=== PATIENT | female | born 1945 | race Caucasian/White ===

== ENCOUNTER 2017-01-15 11:55 | Inpatient (IN) | payer MEDICARE ==
--- NOTE | 2017-01-15 12:29 | ED ---
General Adult HPI - General Chief complaint: Recheck/Abnormal Lab/Rx Stated complaint: HTN Time Seen by Provider: 01/15/17 12:05 Source: patient, RN notes reviewed Mode of arrival: ambulatory Limitations: no limitations - History of Present Illness Initial comments: This is a 71-year-old female who presents to the emergency department complaining of high blood pressure lately. Patient states she just started on Lotensin recently however on Wednesday she had a significant headache all night long and noticed that her vision was blurred. Patient states she took her blood pressure and she believes it was 220 systolic. Patient states there is a she felt fine all day and then today she started having symptoms of weakness to the left medial fingers 34 and 5 and some tingling to her face and a weird sensation from those fingers up into her forearm. Patient states he came once last about 10 minutes when away and came again last about 10 minutes and went away. During that time she took her blood pressure it was right around 200 systolic. Patient denies any symptoms currently. Patient denies headache. Patient denies any lightheadedness dizziness or near syncopal episode. Patient denies any fever chills or cough per patient denies any chest pain difficult breathing shortness of breath or palpitations. Patient denies any abdominal pain patient denies nausea vomiting diarrhea. - Related Data Home Medications Medication Instructions Recorded Confirmed Ascorbic Acid [Vitamin C] 500 mg PO DAILY 01/15/17 01/15/17 Aspirin EC [Ecotrin Low Dose] 81 mg PO SUTUTHSA 01/15/17 01/15/17 Cholecalciferol [Vitamin D3] 1,000 unit PO DAILY 01/15/17 01/15/17 Fish Oil/Dha/Epa [Fish Oil 1,200 1 cap PO W/SUPPER 01/15/17 01/15/17 mg Fish Oil] Levothyroxine Sodium [Synthroid] 50 mcg PO HS 01/15/17 01/15/17 Losartan Potassium [Cozaar] 50 mg PO DAILY 01/15/17 01/15/17 Multivitamins, Thera [Multivitamin 1 tab PO DAILY 01/15/17 01/15/17 (formulary)] Pravastatin Sodium [Pravachol] 40 mg PO HS 01/15/17 01/15/17 Sertraline HCl [Zoloft] 100 mg PO DAILY 01/15/17 01/15/17 Allergies Allergy/AdvReac Type Severity Reaction Status Date / Time Penicillins Allergy Rash/Hives Verified 01/15/17 13:31 Sulfa (Sulfonamide Allergy Rash/Hives Verified 01/15/17 13:31 Antibiotics) NSAIDS (Non-Steroidal AdvReac Nausea & Verified 01/15/17 13:31 Anti-Inflamma Vomiting Review of Systems ROS Statement: Those systems with pertinent positive or pertinent negative responses have been documented in the HPI. ROS Other: All systems not noted in ROS Statement are negative. Past Medical History Past Medical History: Hyperlipidemia, Hypertension, Thyroid Disorder History of Any Multi-Drug Resistant Organisms: None Reported Past Surgical History: Hysterectomy Additional Past Surgical History / Comment(s): repair of aorta after laproscopic surg Past Psychological History: Depression Smoking Status: Never smoker Past Alcohol Use History: Rare Past Drug Use History: None Reported General Exam - General Exam Comments Initial Comments: GENERAL: Patient is well-developed and well-nourished. Patient is nontoxic and well- hydrated and is in no acute distress. ENT: Neck is soft and supple. No significant lymphadenopathy is noted. Oropharynx is clear. Moist mucous membranes. Neck has full range of motion without eliciting any pain. EYES: The sclera were anicteric and conjunctiva were pink and moist. Extraocular movements were intact and pupils were equal round and reactive to light. Eyelids were unremarkable. PULMONARY: Unlabored respirations. Good breath sounds bilaterally. No audible rales rhonchi or wheezing was noted. CARDIOVASCULAR: There is a regular rate and rhythm without any murmurs gallops or rubs. ABDOMEN: Soft and nontender with normal bowel sounds. No palpable organomegaly was noted. There is no palpable pulsatile mass. SKIN: Skin is clear with no lesions or rashes and otherwise unremarkable. NEUROLOGIC: Patient is alert and oriented x3. Cranial nerves II through XII are grossly intact. Motor and sensory are also intact. Normal speech, volume and content. Symmetrical smile. MUSCULOSKELETAL: Normal extremities with adequate strength and full range of motion. No lower extremity swelling or edema. No calf tenderness. LYMPHATICS: No significant lymphadenopathy is noted PSYCHIATRIC: Normal psychiatric evaluation. Limitations: no limitations Course Vital Signs 01/15/17 01/15/17 01/15/17 12:06 12:51 12:55 Temperature 97 F L Pulse Rate 95 88 92 Respiratory 18 Rate Blood Pressure 158/96 218/90 197/88 O2 Sat by Pulse 98 100 100 Oximetry 01/15/17 01/15/17 13:07 13:46 Temperature Pulse Rate 92 90 Respiratory 18 18 Rate Blood Pressure 184/81 169/83 O2 Sat by Pulse 100 100 Oximetry Medical Decision Making - Medical Decision Making EKG shows normal sinus rhythm at 80 bpm FL interval is 132 QRS is 74 QT interval 38 QTC is 469 per patient's EKG shows no ST segment elevation or depression or T-wave abdomen is noted CT of the head shows no acute normalities. Chest x-ray shows no trouble normalities. Patient had some stuttering symptoms all emergency department whereby her fingers became a little weak again but then went away this happened a couple times in the emergency department. I spoke with Dr. Garnica he agreed to admit the patient I wrote admitting orders I consult neurology. - Lab Data Result diagrams: 01/15/17 12:27 01/15/17 12:27 Lab Results 01/15/17 01/15/17 01/15/17 Range/Units 12:27 12:27 12:27 WBC 6.6 (3.8-10.6) k/uL RBC 4.37 (3.80-5.40) m/uL Hgb 13.2 (11.4-16.0) gm/dL Hct 40.4 (34.0-46.0) % MCV 92.5 (80.0-100.0) fL MCH 30.2 (25.0-35.0) pg MCHC 32.7 (31.0-37.0) g/dL RDW 13.6 (11.5-15.5) % Plt Count 238 (150-450) k/uL Neutrophils % 70 % Lymphocytes % 20 % Monocytes % 5 % Eosinophils % 2 % Basophils % 1 % Neutrophils # 4.6 (1.3-7.7) k/uL Lymphocytes # 1.3 (1.0-4.8) k/uL Monocytes # 0.3 (0-1.0) k/uL Eosinophils # 0.1 (0-0.7) k/uL Basophils # 0.1 (0-0.2) k/uL PT (9.0-12.0) sec INR (<1.1) APTT (22.0-30.0) sec Sodium 140 (137-145) mmol/L Potassium 4.2 (3.5-5.1) mmol/L Chloride 105 (98-107) mmol/L Carbon Dioxide 27 (22-30) mmol/L Anion Gap 8 mmol/L BUN 15 (7-17) mg/dL Creatinine 0.59 (0.52-1.04) mg/dL Est GFR (MDRD) Af Amer >60 (>60 ml/min/1.73 sqM) Est GFR (MDRD) Non-Af >60 (>60 ml/min/1.73 sqM) Glucose 107 H (74-99) mg/dL Calcium 9.6 (8.4-10.2) mg/dL Total Bilirubin 0.5 (0.2-1.3) mg/dL AST 34 (14-36) U/L ALT 27 (9-52) U/L Alkaline Phosphatase 74 (38-126) U/L Total Creatine Kinase 582 H (30-135) U/L CK-MB (CK-2) 1.8 (0.0-2.4) ng/mL CK-MB (CK-2) Rel Index 0.3 Troponin I <0.012 (0.000-0.034) ng/mL Total Protein 7.3 (6.3-8.2) g/dL Albumin 3.9 (3.5-5.0) g/dL /01/27 Range/Units 12:27 WBC (3.8-10.6) k/uL RBC (3.80-5.40) m/uL Hgb (11.4-16.0) gm/dL Hct (34.0-46.0) % MCV (80.0-100.0) fL MCH (25.0-35.0) pg MCHC (31.0-37.0) g/dL RDW (11.5-15.5) % Plt Count (150-450) k/uL Neutrophils % % Lymphocytes % % Monocytes % % Eosinophils % % Basophils % % Neutrophils # (1.3-7.7) k/uL Lymphocytes # (1.0-4.8) k/uL Monocytes # (0-1.0) k/uL Eosinophils # (0-0.7) k/uL Basophils # (0-0.2) k/uL PT 11.0 (9.0-12.0) sec INR 1.1 (<1.1) APTT 26.0 (22.0-30.0) sec Sodium (137-145) mmol/L Potassium (3.5-5.1) mmol/L Chloride (98-107) mmol/L Carbon Dioxide (22-30) mmol/L Anion Gap mmol/L BUN (7-17) mg/dL Creatinine (0.52-1.04) mg/dL Est GFR (MDRD) Af Amer (>60 ml/min/1.73 sqM) Est GFR (MDRD) Non-Af (>60 ml/min/1.73 sqM) Glucose (74-99) mg/dL Calcium (8.4-10.2) mg/dL Total Bilirubin (0.2-1.3) mg/dL AST (14-36) U/L ALT (9-52) U/L Alkaline Phosphatase (38-126) U/L Total Creatine Kinase (30-135) U/L CK-MB (CK-2) (0.0-2.4) ng/mL CK-MB (CK-2) Rel Index Troponin I (0.000-0.034) ng/mL Total Protein (6.3-8.2) g/dL Albumin (3.5-5.0) g/dL Disposition Clinical Impression: TIA (transient ischemic attack) Disposition: ADMITTED IP TO THIS [facility] Time of Disposition: 14:04
[2017-01-15 12:38] LABS: Basophils # (A) 0.1 k/uL (0-0.2); Basophils % (A) 1 %; CH 30.2; CHCM 32.8; Eosinophils # (A) 0.1 k/uL (0-0.7); Eosinophils % (A) 2 %; HCT 40.4 % (34.0-46.0); HDW 2.33; HGB 13.2 gm/dL (11.4-16.0); Luc # (Auto) 0.13; Luc % (Auto) 2; Lymphocytes # (A) 1.3 k/uL (1.0-4.8); Lymphocytes % (A) 20 %; MCH 30.2 pg (25.0-35.0); MCHC 32.7 g/dL (31.0-37.0); MCV 92.5 fL (80.0-100.0); Mean Platelet Volume 7.2; Monocytes # (A) 0.3 k/uL (0-1.0); Monocytes % (A) 5 %; Neutrophils # (A) 4.6 k/uL (1.3-7.7); Neutrophils % (A) 70 %; RBC 4.37 m/uL (3.80-5.40); RDW 13.6 % (11.5-15.5); WBC 6.6 k/uL (3.8-10.6); WBC (Perox) 6.99
[2017-01-15 12:49] LABS: ALT 27 U/L (9-52); AST 34 U/L (14-36); Alkaline Phosphatase 74 U/L (38-126); Anion Gap 8 mmol/L; Blood Urea Nitrogen 15 mg/dL (7-17); Calcium 9.6 mg/dL (8.4-10.2); Carbon Dioxide 27 mmol/L (22-30); Chloride 105 mmol/L (98-107); Glucose 107 mg/dL (74-99); Non-African American GFR(MDRD) >60 (>60 ml/min/1.73 sqM); Potassium 4.2 mmol/L (3.5-5.1); Sodium 140 mmol/L (137-145); Total Bilirubin 0.5 mg/dL (0.2-1.3); Total Protein 7.3 g/dL (6.3-8.2)
--- NOTE | 2017-01-15 12:52 | CT ---
EXAMINATION TYPE: CT brain wo con DATE OF EXAM: 01/15/2017 12:47 PM COMPARISON: NONE HISTORY: left arm numbness, htn CT DLP: 1085 mGycm. Automated Exposure Control for Dose Reduction was Utilized. TECHNIQUE: CT scan of the head is performed without contrast. FINDINGS: There is no acute intracranial hemorrhage, mass effect, or midline shift identified. The ventricles and sulci are within normal limits in size. The globes are intact and the visualized sin uses are clear. IMPRESSION: No acute intracranial hemorrhage, mass effect, or midline shift is seen.
[2017-01-15 13:04] LABS: INR 1.1 (<1.1)
--- NOTE | 2017-01-15 13:04 | XR ---
EXAMINATION TYPE: XR chest 2V DATE OF EXAM: 01/15/2017 12:54 PM COMPARISON: NONE HISTORY: Hypertension. Chest pain. TECHNIQUE: Frontal and lateral views of the chest are obtained. FINDINGS: There is no focal air space opacity, pleural effusion, or pneumothorax seen. The cardiac silhouette size is within normal limits. The osseous structures are intact. Hilar vasculature is un remarkable. No radiographic evidence of pulmonary arterial hypertension. IMPRESSION: No acute cardiopulmonary process.
[2017-01-15 13:05] LABS: Creatine Kinase 582 U/L (30-135)
[2017-01-15 13:18] LABS: Creatine Kinase MB 1.8 ng/mL (0.0-2.4); Troponin I <0.012 ng/mL (0.000-0.034)
--- NOTE | 2017-01-15 14:51 | US ---
EXAMINATION TYPE: US carotid duplex BILAT DATE OF EXAM: 01/15/2017 2:43 PM COMPARISON: NONE CLINICAL HISTORY: Stenosis. HTN, numbness left hand, lower arm, and face, headache EXAM MEASUREMENTS: RIGHT: Peak Systolic Velocity (PSV) cm/sec ----- Right CCA: 65.8 ----- Right ICA: 129.1 ----- Right ECA: 86.6 ICA/CCA ratio: 2.0 RIGHT: End Diastole cm/sec ----- Right CCA: 15.3 ----- Right ICA: 33.8 ----- Right ECA: 5.0 LEFT: Peak Systolic Velocity (PSV) cm/sec ----- Left CCA: 68.5 ----- Left ICA: 129.9 ----- Left ECA: 74.9 ICA/CCA ratio: 1.9 LEFT: End Diastole cm/sec ----- Left CCA: 18.0 ----- Left ICA: 43.2 ----- Left ECA: 19.3 VERTEBRALS (direction of flow): Right Vertebral: Antegrade Left Vertebral: Antegrade Mild plaque bilateral bifurcations. No evidence of significant stenosis. 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 Criteria for Assigning % of Stenosis / Diameter reduction (Estimation based on the indirect measurements of the internal carotid artery velocities (ICA PSV). 1. Normal (no stenosis)=ICA PSV < 125 cm/s: ratio < 2.0: ICA EDV<40 cm/s. 2. Less than 50% stenosis=ICA PSV < 125 cm/s: ratio < 2.0: ICA EDV<40 cm/s. 3. 50 to 69% stenosis=ICA PSV of 125 to 230 cm/s: ration 2.0 ? 4.0: ICA EDV 40-100 cm/s. 4. Greater than 70% stenosis to near occlusion= ICA PSV > 230 cm/s: ratio > 4.0: ICA EDV > 100 cm/s. 5. Near occlusion= ICA PSV velocities may be low or undetectable: variable ratio and ICA EDV. 6. Total occlusion=unable to detect flow.
--- NOTE | 2017-01-15 16:32 | P.HPIM ---
History of Present Illness H&P Date: 01/15/17 Chief Complaint: tingling 71-year-old female with the recent diagnosis of hypertension was started on the medication within the last 5 days comes in the hospital with an episode of fall left arm tingling. 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 Patient was seen by Dr. Lundberg on Wednesday and was started on losartan. Patient states that her blood pressure over the recent times were range from 140-160 systolic. However over the last 2 blood pressure checks patient's systolic has been greater than 210. Patient has doubled up on her medication over the last 2 days to take 25 mg losartan 2 tabs daily. This a.m. her blood pressure apparently was 150 systolic when her symptoms started. Patient also states that she noticed tingling at the angle of her mouth. All her symptoms lasted less than half hour denies having any motor weakness that was appreciated no dysarthria Denies having any previous history of TIAs or strokes. Review of Systems All systems: negative (Noted in HPI) Past Medical History Past Medical History: Hyperlipidemia, Hypertension, Thyroid Disorder Additional Past Medical History / Comment(s): GERD-TAKE OTC TUMS NEEDED, STRESS INCONT OF URINE, DPERESSION. 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 THEY ARE SNOW BIRDS FROM [place] TO [place].6 MONTHS EACH STATE. HERE THEY LIVE IN A SINGLE LEVEL HOME THAT HAS 4 PORCH STEPS.HAND ETCHER PETS. NO OUTSIDE SERVICES NO MEDICAL EQUIPMENT. WORKED AT [employer] OFFICE [employer] 10 YEARS AGO. Smoking Status: Never smoker Past Alcohol Use History: Rare Past Drug Use History: None Reported - Past Family History Mother Family Medical History: Hypertension, Pneumonia Additional Family Medical History / Comment(s): PROBLEMS WITH MUSCLE CONTROL IN HER THROAT Father Family Medical History: Congestive Heart Failure (CHF), Coronary Artery Disease (CAD), Hyperlipidemia, Hypertension Additional Family Medical History / Comment(s): CABG Medications and Allergies Home Medications Medication Instructions Recorded Confirmed Type Ascorbic Acid [Vitamin C] 500 mg PO DAILY 01/15/17 01/15/17 History Aspirin EC [Ecotrin Low Dose] 81 mg PO SUTUTHSA 01/15/17 01/15/17 History Cholecalciferol [Vitamin D3] 1,000 unit PO DAILY 01/15/17 01/15/17 History Fish Oil/Dha/Epa [Fish Oil 1,200 1 cap PO W/SUPPER 01/15/17 01/15/17 History mg Fish Oil] Levothyroxine Sodium [Synthroid] 50 mcg PO HS 01/15/17 01/15/17 History Losartan Potassium [Cozaar] 50 mg PO DAILY 01/15/17 01/15/17 History Multivitamins, Thera [Multivitamin 1 tab PO DAILY 01/15/17 01/15/17 History (formulary)] Pravastatin Sodium [Pravachol] 40 mg PO HS 01/15/17 01/15/17 History Sertraline HCl [Zoloft] 100 mg PO DAILY 01/15/17 01/15/17 History Allergies Allergy/AdvReac Type Severity Reaction Status Date / Time Penicillins Allergy Rash/Hives Verified 01/15/17 13:31 Sulfa (Sulfonamide Allergy Rash/Hives Verified 01/15/17 13:31 Antibiotics) NSAIDS (Non-Steroidal AdvReac Nausea & Verified 01/15/17 13:31 Anti-Inflamma Vomiting Physical Exam Vitals: Vital Signs Temp Resp BP Pulse Ox 01/15/17 15:03 97.6 F 17 199/89 100 Physical exam Gen. appearance oriented 3 in no distress Neck is supple no JVD Lungs good air entry clear to auscultation no rhonchi or wheezing Heart S1-S2 heard regular rate and rhythm no murmurs appreciated Abdomen is soft nontender no organomegaly bowel sounds are intact Neurologically cranial nerves II-12 grossly intact no focal motor or sensory deficits noted. 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 This could also be secondary to a significant decrease in her blood pressure which was around 210 over the last 2 days however echocardiogram carotid studies will be done. Continue telemetry monitoring today's EKG did not reveal any tachyarrhythmias Aspirin and statin will be continued. Neurology evaluation will be obtained Patient is currently symptom free.
[2017-01-15] MEDS: amLODIPine 5 MG TAB PO SCH (17:18)
--- NOTE | 2017-01-15 17:47 | P.CNNES ---
History of Present Illness Consult date: 01/15/17 History of Present Illness: The patient is a 71-year-old right-handed white female who states her blood pressure is been slightly elevated after coming back from [place] last week. Saw her primary care physician Dr. Lundberg on Wednesday and she was started on a blood pressure medication losartan 50 g a day. He will certain she experienced blurred vision and confusion so the following day she took half the dose which she could tolerate. Today she took a whole dose. She has had episodic left ulnar nerve distribution numbness and tingling and left lip numbness and tingling lasted for 4-10 minutes. I will occasions this week during her hypertensive episodes. 6. Experienced a pressure in the head and blurred vision. Resent to the emergency room with these complaints. Night any focal weakness loss of balance or coordination she had a CT of the brain which was unremarkable. Review of Systems Eyes: denies blurred vision, denies pain Ears, nose, mouth and throat: Denies headache, Denies sore throat Cardiovascular: Denies chest pain, Denies shortness of breath Respiratory: Denies cough Genitourinary: Denies dysuria, Denies hematuria Neurological: Denies numbness, Denies weakness Psychiatric: Denies anxiety, Denies depression Past Medical History Past Medical History: Hyperlipidemia, Hypertension, Thyroid Disorder Additional Past Medical History / Comment(s): GERD-TAKE OTC TUMS NEEDED, STRESS INCONT OF URINE, DPERESSION. 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 THEY ARE SNOW BIRDS FROM [place] TO [place]6 MONTHS EACH STATE. HERE THEY LIVE IN A SINGLE LEVEL HOME THAT HAS 4 PORCH STEPS.[employer] PETS. NO OUTSIDE SERVICES NO MEDICAL EQUIPMENT. WORKED AT [employer] OFF[employer] 10 YEARS AGO. Smoking Status: Never smoker Past Alcohol Use History: Rare Past Drug Use History: None Reported - Past Family History Mother Family Medical History: Hypertension, Pneumonia Additional Family Medical History / Comment(s): PROBLEMS WITH MUSCLE CONTROL IN HER THROAT Father Family Medical History: Congestive Heart Failure (CHF), Coronary Artery Disease (CAD), Hyperlipidemia, Hypertension Additional Family Medical History / Comment(s): CABG Medications and Allergies Home Medications Medication Instructions Recorded Confirmed Type Ascorbic Acid [Vitamin C] 500 mg PO DAILY 01/15/17 01/15/17 History Aspirin EC [Ecotrin Low Dose] 81 mg PO SUTUTHSA 01/15/17 01/15/17 History Cholecalciferol [Vitamin D3] 1,000 unit PO DAILY 01/15/17 01/15/17 History Fish Oil/Dha/Epa [Fish Oil 1,200 1 cap PO W/SUPPER 01/15/17 01/15/17 History mg Fish Oil] Levothyroxine Sodium [Synthroid] 50 mcg PO HS 01/15/17 01/15/17 History Losartan Potassium [Cozaar] 50 mg PO DAILY 01/15/17 01/15/17 History Multivitamins, Thera [Multivitamin 1 tab PO DAILY 01/15/17 01/15/17 History (formulary)] Pravastatin Sodium [Pravachol] 40 mg PO HS 01/15/17 01/15/17 History Sertraline HCl [Zoloft] 100 mg PO DAILY 01/15/17 01/15/17 History Allergies Allergy/AdvReac Type Severity Reaction Status Date / Time Penicillins Allergy Rash/Hives Verified 01/15/17 13:31 Sulfa (Sulfonamide Allergy Rash/Hives Verified 01/15/17 13:31 Antibiotics) NSAIDS (Non-Steroidal AdvReac Nausea & Verified 01/15/17 13:31 Anti-Inflamma Vomiting Physical Examination - Vital Signs Vital Signs: Vital Signs Temp Resp BP Pulse Ox 01/15/17 17:18 191/68 01/15/17 15:03 97.6 F 17 199/89 100 - Constitutional General appearance: average body habitus - EENT EENT: PERRL - Respiratory Respiratory: lungs clear - Cardiovascular Cardiovascular: regular rate, normal S1, normal S2 - Integumentary Integumentary: normal - Neurologic Mental status she was awake alert and oriented. There was no aphasia or dysarthria Cranial nerve examination: PERRL, EOMI, VFF, V1/V2/V3 grossly intact, face symmetric, tongue midline Speech examination: intact Detailed motor examination: grossly full strength in all extremities Detailed sensory examination: intact - Psychiatric Psychiatric: mood/affect appropriate Results - Laboratory Findings CBC and BMP: 01/15/17 12:27 01/15/17 12:27 Assessment and Plan (1) TIA (transient ischemic attack) Status: Acute Code(s): G45.9 - TRANSIENT CEREBRAL ISCHEMIC ATTACK, UNSPECIFIED Plan: The patient is a 71-year-old woman who presents with hypertensive urgency. She has had a few episodes of left hand and lips tingling during these episodes. The patient has likely had a TIA although it is possible that the hypertensive urgency caused her symptoms. Recommend carotid ultrasound echocardiogram and starting patient on Plavix 75 mg a day. Risk factors for stroke include high cholesterol and hypertension
[2017-01-15] MEDS ORDERED: PRAVASTATIN SODIUM 40 MG TAB PO SCH (21:00)
[2017-01-16] MEDS ORDERED: ACETAMINOPHEN TAB 325 MG TAB PO PRN (04:24)
[2017-01-16] MEDS ORDERED: LEVOTHYROXINE 50 MCG TAB PO SCH (06:00)
[2017-01-16 06:45] LABS: Basophils % (A) 1 %; CH 30.3; CHCM 32.7; Eosinophils # (A) 0.1 k/uL (0-0.7); Eosinophils % (A) 2 %; HCT 38.3 % (34.0-46.0); HDW 2.31; HGB 12.3 gm/dL (11.4-16.0); Luc % (Auto) 2; Lymphocytes # (A) 0.8 k/uL (1.0-4.8); Lymphocytes % (A) 16 %; MCHC 32.2 g/dL (31.0-37.0); MCV 93.1 fL (80.0-100.0); Mean Platelet Volume 7.6; Monocytes # (A) 0.3 k/uL (0-1.0); Monocytes % (A) 6 %; Neutrophils # (A) 3.7 k/uL (1.3-7.7); Neutrophils % (A) 74 %; RBC 4.11 m/uL (3.80-5.40); RDW 13.5 % (11.5-15.5); WBC 5.1 k/uL (3.8-10.6); WBC (Perox) 5.27
[2017-01-16 07:04] LABS: ALT 30 U/L (9-52); AST 31 U/L (14-36); Alkaline Phosphatase 61 U/L (38-126); Anion Gap 5 mmol/L; Blood Urea Nitrogen 16 mg/dL (7-17); Calcium 9.1 mg/dL (8.4-10.2); Carbon Dioxide 27 mmol/L (22-30); Chloride 106 mmol/L (98-107); Cholesterol 249 mg/dL (<200); Glucose 115 mg/dL (74-99); HDL Cholesterol 80 mg/dL (40-60); Non-African American GFR(MDRD) >60 (>60 ml/min/1.73 sqM); Potassium 4.6 mmol/L (3.5-5.1); Sodium 138 mmol/L (137-145); Total Bilirubin 0.6 mg/dL (0.2-1.3); Total Protein 6.3 g/dL (6.3-8.2); Triglycerides 127 mg/dL (<150)
[2017-01-16] MEDS ORDERED: ASPIRIN 81 MG CHEW PO SCH (07:30)
[2017-01-16] MEDS: amLODIPine 5 MG TAB PO SCH (08:41)
[2017-01-16] MEDS ORDERED: SERTRALINE 100 MG TAB PO SCH (09:00)
[2017-01-16] MEDS ORDERED: CLOPIDOGREL 75 MG TAB PO SCH (09:00)
[2017-01-16 09:30] VITALS: RESP 18
--- NOTE | 2017-01-16 13:03 | ECHOF ---
Referral Reason:TIA MEASUREMENTS -------- HEIGHT: 162.6 cm WEIGHT: 65.8 kg BP: 199/89 RVIDd: 2.9 cm (< 3.3) IVSd: 1.1 cm (0.6 - 1.1) LVIDd: 4.5 cm (3.9 - 5.3) LVPWd: 1.1 cm (0.6 - 1.1) IVSs: 1.4 cm LVIDs: 3.2 cm LVPWs: 1.8 cm LA Diam: 3.8 cm (2.7 - 3.8) LAESV Index (A-L): 31.69 ml/m Ao Diam: 2.5 cm (2.0 - 3.7) AV Cusp: 1.8 cm (1.5 - 2.6) MV EXCURSION: 18.547 mm (> 18.000) MV EF SLOPE: 126 mm/s (70 - 150) EPSS: 0.7 cm MV E Luis Felipe: 1.05 m/s MV DecT: 219 ms MV A Luis Felipe: 0.76 m/s MV E/A Ratio: 1.38 RAP: 5.00 mmHg RVSP: 38.02 mmHg FINDINGS -------- Sinus rhythm. This was a technically good study. The left ventricular size is normal. Left ventricular wall thickness is normal. Overall left ventricular systolic function is normal with, an EF between 60 - 65 %. The right ventricle is normal in size and function. LA is midly dilated 29-33ml/m2. The right atrium is normal in size. The aortic valve is trileaflet and appears structurally normal. The mitral valve leaflets are mildly thickened. [id number] mitral regurgitation is present. Mild tricuspid regurgitation present. There is mild pulmonary hypertension. The right ventricular systolic pressure, as measured by Doppler, is 38.02mmHg. Trace/mild (physiologic) pulmonic regurgitation. The aortic root size is normal. Normal inferior vena cava with normal inspiratory collapse consistent with estimated right atrial pressure of 5 mmHg. The pericardium is normal. CONCLUSIONS -------- 1. Sinus rhythm. 2. The mitral valve leaflets are mildly thickened. 3. [id number] mitral regurgitation is present. 4. Mild tricuspid regurgitation present. 5. There is mild pulmonary hypertension. 6. The right ventricular systolic pressure, as measured by Doppler, is 38.02mmHg. 7. Trace/mild (physiologic) pulmonic regurgitation. 8. The aortic root size is normal. 9. Normal inferior vena cava with normal inspiratory collapse consistent with estimated right atrial pressure of 5 mmHg. 10. The pericardium is normal. 11. This was a technically good study. 12. The left ventricular size is normal. 13. Left ventricular wall thickness is normal. 14. Overall left ventricular systolic function is normal with, an EF between 60 - 65 %. 15. The right ventricle is normal in size and function. 16. LA is midly dilated 29-33ml/m2. 17. The right atrium is normal in size. 18. The aortic valve is trileaflet and appears structurally normal. ORACLE ARCHITECT: Ashlee Martinez RDCS
[2017-01-16 13:06] VITALS: BP 153/64; PULSE 79; TEMP 97.6
--- NOTE | 2017-01-16 13:38 | P.DS ---
Providers Date of admission: 01/15/17 14:05 Attending physician: Denisa Garnica Primary care physician: Kendal Lundberg Hospital Course: 71-year-old female with the recent diagnosis of hypertension was started on the medication within the last 5 days comes in the hospital with an episode of fall left arm tingling. 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 Patient was seen by Dr. Lundberg on Wednesday and was started on losartan. Patient states that her blood pressure over the recent times were range from 140-160 systolic. However over the last 2 blood pressure checks patient's systolic has been greater than 210. Patient has doubled up on her medication over the last 2 days to take 25 mg losartan 2 tabs daily. This a.m. her blood pressure apparently was 150 systolic when her symptoms started. Patient also states that she noticed tingling at the angle of her mouth. All her symptoms lasted less than half hour denies having any motor weakness that was appreciated no dysarthria Denies having any previous history of TIAs or strokes. 01/16/2017 Patient denied having any recurrent symptoms of left hand numbness had isolated episode of headache or night however not associated with any difficulty in vision nausea vomiting or diarrhea. Physical exam Gen. appearance oriented 3 in no distress Neck is supple no JVD Lungs good air entry clear to auscultation no rhonchi or wheezing Heart S1-S2 heard regular rate and rhythm no murmurs appreciated Abdomen is soft nontender no organomegaly bowel sounds are intact Neurologically cranial nerves II-12 grossly intact no focal motor or sensory deficits noted. 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 likely a transient ischemic attack #2 accelerated hypertension #3 dyslipidemia # hypothyroidism #5 vitamin D insufficiency #6 depression Stroke workup EKG did not reveal atrial fibrillation no telemetry abnormalities Echo revealed a EF of 60-65% no significant stenosis appreciated Carotid study show 50-69% bilateral stenosis Neurology evaluation was done recommended aspirin and Plavix, discussed the current evidence we'll discharge patient on aspirin 81 mg by mouth daily patient was only taken it 4 times a day due to significant bruising In regards to hypertension amlodipine 5 mg plus losartan 25 mg will be started discussed blood pressure diary is to follow-up with Dr. Lundberg within the next week for titration of blood pressure TSH was 0.014 Synthroid was decreased to 50 mics in the recent times continue current dose repeat a TSH in 6 weeks Plan - Discharge Summary New Discharge Prescriptions: Losartan [Cozaar] 25 mg PO DAILY #15 tab amLODIPine [Norvasc] 5 mg PO DAILY #30 tab Discharge Medication List Ascorbic Acid [Vitamin C] 500 mg PO DAILY 01/15/17 [History] Cholecalciferol [Vitamin D3] 1,000 unit PO DAILY 01/15/17 [History] Fish Oil/Dha/Epa [Fish Oil 1,200 mg Fish Oil] 1 cap PO W/SUPPER 01/15/17 [ History] Levothyroxine Sodium [Synthroid] 50 mcg PO HS 01/15/17 [History] Multivitamins, Thera [Multivitamin (formulary)] 1 tab PO DAILY 01/15/17 [History ] Pravastatin Sodium [Pravachol] 40 mg PO HS 01/15/17 [History] Sertraline HCl [Zoloft] 100 mg PO DAILY 01/15/17 [History] Aspirin 81 mg PO SUTUTHSA chew 01/16/17 [Rx] Losartan [Cozaar] 25 mg PO DAILY #15 tab 01/16/17 [Rx] amLODIPine [Norvasc] 5 mg PO DAILY #30 tab 01/16/17 [Rx] Follow up Appointment(s)/Referral(s): Kendal Lundberg DO [Primary Care Provider] - 1-2 days Discharge Disposition: HOME SELF-CARE
--- NOTE | 2017-01-16 14:17 | P.PN ---
Subjective Principal diagnosis: TIA The patient is a 71-year-old woman admitted to the hospital with hypertensive episodes and episode of left hand and left lip numbness. She was evaluated for possible TIA. Today she is feeling back to her baseline. She denies any headache dizziness focal weakness or numbness. She has had a carotid ultrasound which was unremarkable. Echocardiogram results pending. She has been started on Plavix and advised to take Plavix 75 mg a day. If she chooses not to stay on Plavix because of financial reasons she was advised she should increase her aspirin dose to 6 or 7 days a week instead of 4 days a week which she is presently doing. Carotid ultrasound was unremarkable and echocardiogram are pending. Objective - Vital Signs Vital signs: Vital Signs Temp 97.6 F 01/16/17 12:00 Pulse 79 01/16/17 12:00 Resp 18 01/16/17 12:00 BP 153/64 01/16/17 12:00 Pulse Ox 99 01/16/17 12:00 Intake & Output 01/15/17 01/16/17 01/16/17 18:59 06:59 18:59 Intake Total 240 500 Output Total 400 0 Balance 240 -400 500 Weight 65.5 kg Intake: Oral 240 500 Output: Urine 400 0 Other: Voiding Method Toilet Toilet # Voids 1 - Constitutional General appearance: Present: average body habitus - Respiratory Respiratory: bilateral: CTA - Cardiovascular Rhythm: regular - Neurologic Neurologic Comment(s): To status she was awake alert and oriented chance of questions appropriately there is no aphasia or dysarthria Neurologic: Present: CNII-XII intact - Musculoskeletal Musculoskeletal: Present: gait normal - Psychiatric Psychiatric: Present: A&O x's 3 - Labs CBC & Chem 7: 01/16/17 06:05 01/16/17 06:05 Labs: Abnormal Lab Results - Last 24 Hours (Table) 01/16/17 01/16/17 Range/Units 06:05 06:05 Lymphocytes # 0.8 L (1.0-4.8) k/uL Glucose 115 H (74-99) mg/dL Albumin 3.3 L (3.5-5.0) g/dL Cholesterol 249 H (<200) mg/dL LDL Cholesterol, Calc 144 H (0-99) mg/dL HDL Cholesterol 80 H (40-60) mg/dL TSH 0.016 L (0.465-4.680) mIU/L Assessment and Plan (1) TIA (transient ischemic attack) Status: Acute Code(s): G45.9 - TRANSIENT CEREBRAL ISCHEMIC ATTACK, UNSPECIFIED Plan: The patient is a 71-year-old woman with history of new onset hypertension associated with transient left lip and left hand numbness and tingling the patient most likely had a TIA. She has been started on Plavix 75 mg a day. Advised to take Plavix once a day but she did express concern that it may be costly. If so she couldn't continue on aspirin but at a higher dose. Currently she is taking aspirin for days a week and recommendation would be to increase aspirin to 6 or 7 days a week.
== END 2017-01-16 14:45 | disposition home or self-care (01) | DRG 69 ==
LOC: EC 11:55 → 6SEL 14:05
PROVIDERS: ADMIT Internal Medicine; ATTEND Internal Medicine
DX: G45.9 Transient cerebral ischemic attack, unspecified (principal); I10 Essential (primary) hypertension; I16.0 Hypertensive urgency; E03.9 Hypothyroidism, unspecified; E55.9 Vitamin D deficiency, unspecified; E78.5 Hyperlipidemia, unspecified; F32.9 Major depressive disorder, single episode, unspecified; Z79.82 Long term (current) use of aspirin; Z79.899 Other long term (current) drug therapy; Z82.49 Family history of ischemic heart disease and other diseases of the circulatory system; Z88.0 Allergy status to penicillin; Z88.2 Allergy status to sulfonamides; Z88.8 Allergy status to other drugs, medicaments and biological substances
CPT/HCPCS: 36415; 70450; 71020; 80053; 80061; 82550; 82553; 84439; 84443; 84484; 85025; 85610; 85730; 93005; 93306; 93880; 99285

== ENCOUNTER → 2017-04-05 | Outpatient (CLI) | payer MEDICARE ==
--- NOTE | 2017-04-05 08:15 | US ---
EXAMINATION TYPE: US kidneys/renal and bladder DATE OF EXAM: 04/05/2017 COMPARISON: NONE CLINICAL HISTORY: N04.9 Nephrotic syndrome. Swollen legs and feet, high protein in urine EXAM MEASUREMENTS: Right Kidney: 9.9 x 4.6 x 3.6 cm Left Kidney: 11.7 x 4.9 x 4.4 cm Right Kidney: wnl Left Kidney: wnl Bladder: moderately distended, wnl Bilateral Jets seen IMPRESSION: Normal renal ultrasound.
--- NOTE | 2017-04-06 08:58 | MM ---
Reason for exam: screening (asymptomatic). Last mammogram was performed 1 year and 1 month ago. History: Patient is postmenopausal. Family history of breast cancer in 2 maternal aunts. Took estrogen for 20 years 6 months. Physical Findings: A clinical breast exam by your physician is recommended on an annual basis and results should be correlated with mammographic findings. MG 3D Screening Mammo W/Cad Bilateral CC and MLO view(s) were taken. Prior study comparison: March 10, 2016, bilateral MG screening mammo w CAD. February 11, 2015, bilateral MG screening mammo w CAD. The breast tissue is heterogeneously dense. This may lower the sensitivity of mammography. There is no discrete abnormality. No significant changes when compared with prior studies. ASSESSMENT: Negative, BI-RAD 1 RECOMMENDATION: Routine screening mammogram of both breasts in 1 year.
== END | disposition home or self-care (01) ==
LOC: RADMAMWWP 07:31
PROVIDERS: ATTEND Family Medicine
DX: Z12.31 Encounter for screening mammogram for malignant neoplasm of breast (principal); N04.9 Nephrotic syndrome with unspecified morphologic changes
CPT/HCPCS: 77063; 76770; G0202

== ENCOUNTER → 2018-05-03 | Outpatient (CLI) | payer MEDICARE ==
--- NOTE | 2018-05-04 08:50 | BD ---
EXAMINATION TYPE: Axial Bone Density DATE OF EXAM: 05/03/2018 COMPARISON: 02/11/2015 CLINICAL HISTORY: Vitamin D deficiency, postmenopausal, Z 13.820, screening Height: 60 IN Weight: 150 LBS FRAX RISK QUESTIONS: 3. Menopause before 45: YES AGE 40 RISK FACTORS HISTORY OF: Active: YES Postmenopausal woman: AGE 40 Take estrogen and/or progesterone medications: NOT NOW How long: AGE 40-65 MEDICATIONS: Thyroid Medications: YES Which medication: SYNTHROID How LonYEARS Additional Medications: CALCIUM, VIT D, SYNTHROID, BLOOD PRESSURE MEDS, METOPROLOL, CHEMO CYTOXIN 75 MG DAILY FOR A KIDNEY ISSUE PT TOOK STEROIDS FOR 1 YEAR FOR KIDNEY ISSUES. STOPPED 1 MONTH AGO EXAM MEASUREMENTS: Bone mineral densitometry was performed using the [employer] System. Bone mineral density as measured about the Lumbar spine is: ----- L1-L4(G/cm2): 0.926 T Score Values are as follows: ----- L2: -2.4 ----- L3: -2.1 ----- L4: -2.1 ----- L1-L4: -2.1 Bone mineral density has: Decreased -2.1% since study of: 02/11/2015 Bone mineral density about the R hip (g/cm2): 0.865 Bone mineral density about the L hip (g/cm2): 0.860 T Score values are as follows: -----R Neck: -1.2 -----L Neck: -1.3 -----R Total: -0.9 -----L Total: -1.0 Bone mineral density has: Increased 0.8% since study of: 02/11/2015 IMPRESSION: Osteopenia (T Score between -2.5 and -1). There is slightly increased risk of fracture and the patient may be considered for treatment. Re-Screen 2-5 years. NOTE: T-SCORE=SD OF THE YOUNG ADULT MEAN.
--- NOTE | 2018-05-05 11:22 | MM ---
Reason for exam: screening (asymptomatic). Last mammogram was performed 1 year and 1 month ago. History: Patient is postmenopausal. Family history of breast cancer in 2 maternal aunts. Took estrogen for 20 years 6 months. Physical Findings: A clinical breast exam by your physician is recommended on an annual basis and results should be correlated with mammographic findings. MG 3D Screening Mammo W/Cad Bilateral CC and MLO view(s) were taken. XCCL view(s) were taken of the right breast. Prior study comparison: April 05, 2017, bilateral MG 3d screening mammo w/cad. March 10, 2016, bilateral MG screening mammo w CAD. The breast tissue is heterogeneously dense. This may lower the sensitivity of mammography. No significant changes when compared with prior studies. ASSESSMENT: Negative, BI-RAD 1 RECOMMENDATION: Routine screening mammogram of both breasts in 1 year.
== END | disposition home or self-care (01) ==
LOC: RADMAMWWP 14:22
PROVIDERS: ATTEND Family Medicine
DX: Z12.31 Encounter for screening mammogram for malignant neoplasm of breast (principal); M85.80 Other specified disorders of bone density and structure, unspecified site; Z13.820 Encounter for screening for osteoporosis; E55.9 Vitamin D deficiency, unspecified
CPT/HCPCS: 77063; 77067; 77080

== ENCOUNTER → 2020-05-27 | Outpatient (CLI) | payer MEDICARE ==
--- NOTE | 2020-05-29 11:03 | MM ---
Reason for exam: screening (asymptomatic). Last mammogram was performed 2 years and 1 month ago. History: Patient is postmenopausal. Family history of breast cancer in 2 maternal aunts. Took estrogen for 20 years 6 months. Physical Findings: A clinical breast exam by your physician is recommended on an annual basis and results should be correlated with mammographic findings. MG 3D Screening Mammo W/Cad Bilateral CC and MLO view(s) were taken. XCCL view(s) were taken of the right breast. Prior study comparison: May 03, 2018, bilateral MG 3d screening mammo w/cad. April 05, 2017, bilateral MG 3d screening mammo w/cad. The breast tissue is heterogeneously dense. This may lower the sensitivity of mammography. No significant changes when compared with prior studies. ASSESSMENT: Negative, BI-RAD 1 RECOMMENDATION: Routine screening mammogram of both breasts in 1 year.
== END | disposition home or self-care (01) ==
LOC: RADMAMWWP 09:25
PROVIDERS: ATTEND Family Medicine
DX: Z12.31 Encounter for screening mammogram for malignant neoplasm of breast (principal)
CPT/HCPCS: 77063; 77067

== ENCOUNTER → 2022-01-05 | Outpatient (CLI) | payer MEDICARE ==
--- NOTE | 2022-01-05 22:51 | BD ---
EXAMINATION TYPE: Axial Bone Density DATE OF EXAM: 01/05/2022 COMPARISON: 05/03/2018 CLINICAL HISTORY: 76 years year old Female. ICD-10 CODE: Z13.820 Screening for Osteoporosis Height: 63.5 IN Weight: 154 LBS FRAX RISK QUESTIONS: Secondary Osteoporosis: 3. Menopause before 45: TOTAL HYST AGE 40 RISK FACTORS HISTORY OF: Active: YES Diet low in dairy products/other sources of calcium: YES Postmenopausal woman: TOTAL HYST AGE 40 Take estrogen and/or progesterone medications: NOT NOW How long: TOOK PREMARIN FOR 20 YEARS MEDICATIONS: Thyroid Medications: YES Which medication: Synthroid How Lon+ YEARS Additional Medications: SYNTHROID, CALCIUM, VIT D, BLOOD PRESSURE MEDS, DEPRESSION MEDS Additional History: PT TOOK ORAL CHEMO FOR 1 YEAR FOR KIDNEY ISSUES. PT DID NOT HAVE CANCER. EXAM MEASUREMENTS: Bone mineral densitometry was performed using the [employer] System. Bone mineral density as measured about the Lumbar spine is: ----- L1-L4(G/cm2): 0.921 T Score Values are as follows: ----- L1: -1.7 ----- L2: -2.5 ----- L3: -2.2 ----- L4: -2.3 ----- L1-L4: -2.2 Bone mineral density has: Decreased -1.7% since study of: 05/03/2018 Bone mineral density about the R hip (g/cm2): 0.868 Bone mineral density about the L hip (g/cm2): 0.827 T Score values are as follows: -----R Neck: -1.2 -----L Neck: -1.5 -----R Total: -0.8 -----L Total: -1.0 Bone mineral density has: Increased 0.8% since study of: 05/03/2018 FRAX%s: The graph provided illustrates a 12.0 chance for a major osteoporotic fx and a 2.6 chance for the hips probability for fx in 10 years time. IMPRESSION: Osteopenia (T Score between -2.5 and -1) remains present. There is slightly increased risk of fracture and the patient may be considered for treatment. Re-Screen 2-5 years. NOTE: T-SCORE=SD OF THE YOUNG ADULT MEAN.
== END | disposition home or self-care (01) ==
LOC: RADMAMWWP 12:30
PROVIDERS: ATTEND Family Medicine
DX: Z12.31 Encounter for screening mammogram for malignant neoplasm of breast (principal); Z13.820 Encounter for screening for osteoporosis
CPT/HCPCS: 77063; 77067; 77080

== ENCOUNTER → 2023-01-07 | Outpatient (CLI) | payer MEDICARE ==
--- NOTE | 2023-01-08 07:55 | MM ---
Reason for Exam: Screening (asymptomatic). Last screening mammogram was performed 12 month(s) ago. Patient History: Menarche at age 16. First Full-Term at age 24. Left ovary removed at age 40. Right ovary removed at age 40. Hysterectomy at age 40. Postmenopausal. Estrogen for 20 years, 6 months. Maternal aunt had breast cancer, age 70. Maternal aunt had breast cancer, age 75. Risk Values: Yoana 5 year model risk: 1.4%. NCI Lifetime model risk: 2.7%. Prior Study Comparison: 05/03/2018 Bilateral Screening Mammogram, [facility]. 05/27/2020 Bilateral Screening Mammogram, [facility]. 01/05/2022 Bilateral Screening Mammogram, [facility]. Tissue Density: The breast tissue is heterogeneously dense. This may lower the sensitivity of mammography. Findings: Analyzed By CAD. Indistinct grouped calcifications subareolar region right breast noted on MLO view warrant further workup. Overall Assessment: Incomplete: need additional imaging evaluation, BI-RAD 0 Management: Diagnostic Mammogram of the right breast. Return for additional spot magnification views subareolar region right breast. [facility] will attempt to contact patient to return for supplemental views and ultrasound if indicated. Patient should continue monthly self-breast exams. A clinical breast exam by your physician is recommended on an annual basis. This exam should not preclude additional follow-up of suspicious palpable abnormalities. Note on Yoana scores and lifetime risk: 1. A Yoana score greater than 3% is considered moderate risk. If this is the case, consider specialist referral to assess eligibility for a risk reducing agent. 2. If overall lifetime risk for the development of breast cancer is 20% or higher, the patient may qualify for future screening with alternating mammogram and breast MRI. Electronically signed and approved by: Clarke Campoverde M.D.
== END | disposition home or self-care (01) ==
LOC: RADMAMWWP 10:32
PROVIDERS: ATTEND Family Medicine
DX: Z12.31 Encounter for screening mammogram for malignant neoplasm of breast (principal); Z78.0 Asymptomatic menopausal state; Z80.3 Family history of malignant neoplasm of breast
CPT/HCPCS: 77063; 77067

== ENCOUNTER → 2023-01-11 | Outpatient (CLI) | payer MEDICARE ==
--- NOTE | 2023-01-11 08:42 | MM ---
Reason for Exam: Additional evaluation requested from abnormal screening. Last screening mammogram was performed less than 1 month ago. Patient History: Menarche at age 16. First Full-Term at age 24. Left ovary removed at age 40. Right ovary removed at age 40. Hysterectomy at age 40. Postmenopausal. Estrogen for 20 years, 6 months. Maternal aunt had breast cancer, age 70. Maternal aunt had breast cancer, age 75. Risk Values: Yoana 5 year model risk: 1.4%. NCI Lifetime model risk: 2.7%. Prior Study Comparison: 04/05/2017 Bilateral Screening Mammogram, [facility]. 05/27/2020 Bilateral Screening Mammogram, [facility]. 01/05/2022 Bilateral Screening Mammogram, [facility]. 01/07/2023 Bilateral MG 3D screening mammo w/cad, [facility]. Tissue Density: Right: The breast tissue is heterogeneously dense. This may lower the sensitivity of mammography. Findings: Analyzed By CAD. No persistent suspicious group of new microcalcification in the right breast on additional views. Overall Assessment: Negative, BI-RAD 1 Management: Screening Mammogram of both breasts in 1 year. Return to routine follow-up. Results were given to the patient verbally at the time of exam. Patient should continue monthly self-breast exams. A clinical breast exam by your physician is recommended on an annual basis. This exam should not preclude additional follow-up of suspicious palpable abnormalities. Note on Yoana scores and lifetime risk: 1. A Yoana score greater than 3% is considered moderate risk. If this is the case, consider specialist referral to assess eligibility for a risk reducing agent. 2. If overall lifetime risk for the development of breast cancer is 20% or higher, the patient may qualify for future screening with alternating mammogram and breast MRI. Electronically signed and approved by: Clarke Campoverde M.D.
== END | disposition home or self-care (01) ==
LOC: RADMAMWWP 08:07
PROVIDERS: ATTEND Family Medicine
DX: R92.8 Other abnormal and inconclusive findings on diagnostic imaging of breast (principal); Z78.0 Asymptomatic menopausal state; Z80.3 Family history of malignant neoplasm of breast
CPT/HCPCS: 77065; G0279; 77061

== ENCOUNTER → 2024-01-17 | Outpatient (CLI) | payer MEDICARE ==
--- NOTE | 2024-01-17 14:18 | BD ---
EXAMINATION TYPE: Axial Bone Density DATE OF EXAM: 01/17/2024 CLINICAL HISTORY: 78 years old Female. ICD-10 CODE: Z78.0 ASYMP RAFA STATE Height: 63 Weight: 153.6 FRAX RISK QUESTIONS: Alcohol (3 or more units per day): no Family History (Parent hip fracture): no Glucocorticoids (More than 3mos): no (Ex: prednisone, prednisolone, methylprednisolone, dexamethasone, and hydrocortisone). History of Fracture in Adulthood: no Secondary Osteoporosis: 1. Type 1 Diabetes: no 2. Hyperthyroidism: no 3. Menopause before 45: yes 4. Malnutrition: no 5. Chronic liver disease: no Rheumatoid Arthritis: no Current Tobacco Use: no RISK FACTORS Surgery to Spine/Hip(right/left)/Wrist (right/left): no MEDICATIONS: Thyroid Medications: synthroid How Lon years EXAM MEASUREMENTS: Bone mineral densitometry was performed using the [employer] System. Bone mineral density as measured about the Lumbar spine is: ----- L1-L4(G/cm2): 0.925 T Score Values are as follows: ----- L1: -1.8 ----- L2: -2.6 ----- L3: -1.5 ----- L4: -2.6 ----- L1-L4: -2.1 Z Score Values are as follows: ----- L1: -0.2 ----- L2: -0.9 ----- L3: 0.1 ----- L4: -0.9 ----- L1-L4: -0.5 Bone mineral density has: increased 0.4 % since study of: 01.05.2022 Bone mineral density about the R hip (g/cm2): 0.918 Bone mineral density about the L hip (g/cm2): 0.905 T Score values are as follows: -----R Neck: -1.3 -----L Neck: -1.4 -----R Total: -0.7 -----L Total: -0.8 Z Score values are as follows: -----R Neck: 0.7 -----L Neck: 0.6 -----R Total: 1.1 -----L Total: 1.0 Bone mineral density has: increased 1.8 % since study of: 4.25.2021 FRAX%s: The graph provided illustrates a 12.6% chance for a major osteoporotic fx and a 2.8% chance f or the hips probability for fx in 10 years time. IMPRESSION: Osteoporosis (T Score less than -2.5). There is increased fracture risk and therapy is usually indicated based on age. Re-Screen 1-2 years. NOTE: T-SCORE=SD OF THE YOUNG ADULT MEAN.
--- NOTE | 2024-01-18 10:01 | MM ---
Reason for Exam: Screening (asymptomatic). Last mammogram was performed 1 year(s) and 1 month(s) ago. Patient History: Menarche at age 16. First Full-Term at age 24. Left ovary removed at age 40. Right ovary removed at age 40. Hysterectomy at age 40. Postmenopausal. Estrogen for 20 years, 6 months. Maternal aunt had breast cancer, age 70. Maternal aunt had breast cancer, age 75. Risk Values: Yoana 5 year model risk: 1.4%. NCI Lifetime model risk: 2.5%. Prior Study Comparison: 01/05/2022 Bilateral Screening Mammogram, [facility]. 01/07/2023 Bilateral MG 3D screening mammo w/cad, [facility]. 01/11/2023 Right MG 3D work up w/cad RT, [facility]. Tissue Density: The breasts are heterogeneously dense, which may obscure small masses. Findings: Analyzed By CAD. There is no suspicious group of microcalcifications or new suspicious mass in either breast. Overall Assessment: Benign, BI-RAD 2 Management: Screening Mammogram of both breasts in 1 year. . Patient should continue monthly self-breast exams. A clinical breast exam by your physician is recommended on an annual basis. This exam should not preclude additional follow-up of suspicious palpable abnormalities. Note on Yoana scores and lifetime risk: 1. A Yoana score greater than 3% is considered moderate risk. If this is the case, consider specialist referral to assess eligibility for a risk reducing agent. 2. If overall lifetime risk for the development of breast cancer is 20% or higher, the patient may qualify for future screening with alternating mammogram and breast MRI. Electronically signed and approved by: Greg Jeter M.D. Radiologis
== END | disposition home or self-care (01) ==
LOC: RADMAMWWP 12:38
PROVIDERS: ATTEND Family Medicine
DX: Z12.31 Encounter for screening mammogram for malignant neoplasm of breast (principal); M81.0 Age-related osteoporosis without current pathological fracture; M85.89 Other specified disorders of bone density and structure, multiple sites; Z78.0 Asymptomatic menopausal state; Z80.3 Family history of malignant neoplasm of breast
CPT/HCPCS: 77063; 77067; 77080

== ENCOUNTER → 2025-03-09 | Outpatient (CLI) | payer MEDICARE ==
--- NOTE | 2025-03-09 11:34 | MM ---
Reason for Exam: Screening (asymptomatic). Last mammogram was performed 1 year(s) and 1 month(s) ago. Patient History: Menarche at age 16. First Full-Term at age 24. Left ovary removed at age 40. Right ovary removed at age 40. Hysterectomy at age 40. Postmenopausal. Estrogen for 20 years, 6 months. Maternal aunt had breast cancer, age 70. Maternal aunt had breast cancer, age 75. Risk Values: Yoana 5 year model risk: 1.4%. NCI Lifetime model risk: 2.3%. Prior Study Comparison: 01/07/2023 Bilateral MG 3D screening mammo w/cad, [facility]. 01/11/2023 Right MG 3D work up w/cad RT, [facility]. 01/17/2024 Bilateral MG 3D screening mammo w/cad, [facility]. Tissue Density: The breasts are heterogeneously dense, which may obscure small masses. Findings: Analyzed By CAD. Right breast: There is no suspicious group of microcalcifications or new suspicious mass. Left breast: There is no suspicious group of microcalcifications or new suspicious mass. Overall Assessment: Negative, BI-RAD 1 Management: Screening Mammogram of both breasts in [address] [facility] will attempt to contact patient to return for supplemental views and ultrasound if indicated. Patient should continue monthly self-breast exams. A clinical breast exam by your physician is recommended on an annual basis. This exam should not preclude additional follow-up of suspicious palpable abnormalities. Note on Yoana scores and lifetime risk: 1. A Yoana score greater than 3% is considered moderate risk. If this is the case, consider specialist referral to assess eligibility for a risk reducing agent. 2. If overall lifetime risk for the development of breast cancer is 20% or higher, the patient may qualify for future screening with alternating mammogram and breast MRI. [facility], , 03/09/2025 11:07 AM. Electronically signed and approved by: Adrien Nicholas DO
== END | disposition home or self-care (01) ==
LOC: RADMAMWWP 10:19
PROVIDERS: ATTEND Family Medicine
DX: Z12.31 Encounter for screening mammogram for malignant neoplasm of breast (principal); R92.333 Mammographic heterogeneous density, bilateral breasts; Z78.0 Asymptomatic menopausal state; Z80.3 Family history of malignant neoplasm of breast
CPT/HCPCS: 77063; 77067